=== PATIENT | female | born 1955 | race African-American/Black ===

== ENCOUNTER 2017-05-20 20:38 | Inpatient (IN) | payer OTHER, MEDICAID, MEDICARE ==
[~2017-05-20] VITALS: Ht 149.9 cm; Wt 81.6 kg
[2017-05-20 20:40] VITALS: BP 238/146; PULSE 113; RESP 20; TEMP 97.5; O2SAT 98
[2017-05-20 20:52] VITALS: BP 236/126; PULSE 105; RESP 16; O2SAT 98
[2017-05-20] MEDS ORDERED: SODIUM CHLORIDE 0.9% FLUSH 10 ML FLUSH IVF PRN (21:00)
[2017-05-20] MEDS ORDERED: BP MED (21:01)
--- NOTE | 2017-05-20 21:05 | PD ---
HPI Chief Complaint: Respiratory Symptoms Time Seen by Provider: 20:52 Travel History International Travel<30 days: No Contact w/Intl Traveler<30days: No Traveled to known affect area: No History of Present Illness HPI 62-year-old female arrives complaining of shortness of breath and palpitations. She has felt symptoms for months hour became much worse today and yesterday. Orthopnea and dyspnea on exertion is reported. She has had no cough or fever. She reports minimal chest pain with deep inspiration today. Urination has been normal. She denies the usage of diuretics. No nausea vomiting. Diaphoresis reported from earlier today. PFSH Past Medical History Cardiovascular Problems: Yes (HTN, [place]) Diabetes: Yes (borderline) Patient Takes Glucophage: No Hypertension: Yes Respiratory: Yes Tetanus Vaccination: > 5 Years Influenza Vaccination: No ?: Not Menopausal: Yes Past Surgical History Section: Yes (x4) Cholecystectomy: Yes Social History Alcohol Use: Yes (socially) Tobacco Use: No Substance Use: No Allergies-Medications (Allergen,Severity, Reaction): Coded Allergies: No Known Drug Allergies (Verified Allergy, Unknown, 05/20/17) Reported Meds & Prescriptions Reported Meds & Active Scripts Active Reported [BP Med x3] Review of Systems Except as stated in HPI: all other systems reviewed are Neg General / Constitutional: No: Fever Physical Exam Narrative GENERAL: 62-year-old female pleasant no acute distress Vital Signs Date Time Temp Pulse Resp B/P (MAP) Pulse Ox O2 Delivery O2 Flow Rate FiO2 05/20/17 20:56 22 98 Nasal Cannula 2.00 05/20/17 20:52 105 16 236/126 (162) 98 05/20/17 20:40 97.5 113 20 238/146 (176) 98 Room Air SKIN: Warm and dry. HEAD: Atraumatic. Normocephalic. EYES: Pupils equal and round. No scleral icterus. No injection or drainage. ENT: No nasal bleeding or discharge. Mucous membranes pink and moist. NECK: Trachea midline. No JVD. CARDIOVASCULAR: Rhythm is regular. Tachycardia at about 110. RESPIRATORY: No tachypnea. Breath sounds are clear. GASTROINTESTINAL: Abdomen soft, non-tender, nondistended. Hepatic and splenic margins not palpable. MUSCULOSKELETAL: Extremities without clubbing, cyanosis, or edema. No obvious deformities. NEUROLOGICAL: Awake and alert. No obvious cranial nerve deficits. Motor grossly within normal limits. Five out of 5 muscle strength in the arms and legs. Normal speech. PSYCHIATRIC: Appropriate mood and affect; insight and judgment normal. Data Data Last Documented VS Vital Signs Date Time Temp Pulse Resp B/P (MAP) Pulse Ox O2 Delivery O2 Flow Rate FiO2 05/20/17 23:30 98.3 95 19 165/115 (132) 99 Room Air 05/20/17 20:56 2.00 Orders Orders Complete Blood Count With Diff (05/20/17 20:59) Comprehensive Metabolic Panel (05/20/17 20:59) B-Type Natriuretic Peptide (05/20/17 20:59) Act Partial Throm Time (Ptt) (05/20/17 20:59) Prothrombin Time / Inr (Pt) (05/20/17 20:59) Magnesium (Mg) (05/20/17 20:59) Ckmb (Isoenzyme) Profile (05/20/17 20:59) Troponin I (05/20/17 20:59) Urinalysis - C+S If Indicated (05/20/17 20:59) Iv Access Insert/Monitor (05/20/17 20:59) Electrocardiogram (05/20/17 20:59) Ecg Monitoring (05/20/17 20:59) Oximetry (05/20/17 20:59) Oxygen Administration (05/20/17 20:59) Chest, Single Ap (05/20/17 20:59) Ct Pulmonary Angiogram (05/20/17 20:59) Sodium Chloride 0.9% Flush (Ns Flush) (05/20/17 21:00) CKMB (05/20/17 21:00) CKMB% (05/20/17 21:00) Iodixanol 320 Inj (Rad Ct) (Visipaque 32 (05/20/17 22:09) Furosemide Inj (Lasix Inj) (05/20/17 23:30) Admit Order (Ed Use Only) (05/20/17 ) Ladler / Telemetry LEONEL.Q8H (05/20/17 23:38) Vital Signs (Adult) Q4H (05/20/17 23:38) Diet Heart Healthy (05/21/17 Breakfast) Activity Oob With Assistance (05/20/17 23:38) Labs Laboratory Tests Test 05/20/17 21:00 05/20/17 23:30 White Blood Count 9.6 TH/MM3 Red Blood Count 5.81 MIL/MM3 Hemoglobin 13.7 GM/DL Hematocrit 40.9 % Mean Corpuscular Volume 70.3 FL Mean Corpuscular Hemoglobin 23.6 PG Mean Corpuscular Hemoglobin Concent 33.6 % Red Cell Distribution Width 16.0 % Platelet Count 316 TH/MM3 Mean Platelet Volume 8.7 FL Neutrophils (%) (Auto) 61.5 % Lymphocytes (%) (Auto) 28.2 % Monocytes (%) (Auto) 5.0 % Eosinophils (%) (Auto) 4.2 % Basophils (%) (Auto) 1.1 % Neutrophils # (Auto) 5.9 TH/MM3 Lymphocytes # (Auto) 2.7 TH/MM3 Monocytes # (Auto) 0.5 TH/MM3 Eosinophils # (Auto) 0.4 TH/MM3 Basophils # (Auto) 0.1 TH/MM3 CBC Comment DIFF FINAL Differential Comment Prothrombin Time 10.2 SEC Prothromb Time International Ratio 1.0 RATIO Activated Partial Thromboplast Time 24.9 SEC Blood Urea Nitrogen 21 MG/DL Creatinine 1.57 MG/DL Random Glucose 141 MG/DL Total Protein 8.7 GM/DL Albumin 3.5 GM/DL Calcium Level 8.9 MG/DL Magnesium Level 2.1 MG/DL Alkaline Phosphatase 128 U/L Aspartate Amino Transf (AST/SGOT) 64 U/L Alanine Aminotransferase (ALT/SGPT) 42 U/L Total Bilirubin 0.6 MG/DL Sodium Level 138 MEQ/L Potassium Level 3.9 MEQ/L Chloride Level 103 MEQ/L Carbon Dioxide Level 25.3 MEQ/L Anion Gap 10 MEQ/L Estimat Glomerular Filtration Rate 33 ML/MIN Total Creatine Kinase 131 U/L Creatine Kinase MB LESS THAN 0.5 NG/ML Troponin I LESS THAN 0.02 NG/ML B-Type Natriuretic Peptide 535 PG/ML MDM Medical Decision Making Medical Screen Exam Complete: Yes Emergency Medical Condition: Yes Medical Record Reviewed: Yes Differential Diagnosis Pleural effusion, CHF, A. fib RVR Narrative Course CBC & BMP Diagram 05/20/17 21:00 Total Protein 8.7 H, Albumin 3.5, Calcium Level 8.9, Magnesium Level 2.1, Alkaline Phosphatase 128 H, Aspartate Amino Transf (AST/SGOT) 64 H, Alanine Aminotransferase (ALT/SGPT) 42, Total Bilirubin 0.6 Last Impressions Chest X-Ray 05/20/172058 Signed Impressions: Service Date/Time: Saturday, May 20, 2017 21:09 - CONCLUSION: 1. Cardiomegaly. No acute abnormality. Wilfredo Smith MD CT Angiography 05/20/172058 Signed Impressions: Service Date/Time: Saturday, May 20, 2017 22:06 - CONCLUSION: 1. No pulmonary embolus identified. 2. The lungs appear clear. Wilfredo Smith MD BNP is 580. 40 mg IV Lasix to be given. CHF is new per patient d/w Dr Lakhani for [facility] Diagnosis Primary Impression: Congestive heart failure Qualified Codes: I50.9 - Heart failure, unspecified Admitting Information Admitting Physician Requests: Wilfredo Og MD May 20, 2017 21:05
[2017-05-20 21:19] LABS: AUTOMATED NEUTROPHIL # 5.9 TH/MM3 (1.8-7.7); BASOPHIL # 0.1 TH/MM3 (0-0.2); BASOPHIL % 1.1 % (0.0-2.0); EOSINOPHIL # 0.4 TH/MM3 (0-0.4); EOSINOPHIL % 4.2 % (0.0-4.0); HEMATOCRIT 40.9 % (35.0-46.0); HEMOGLOBIN 13.7 GM/DL (11.6-15.3); LYMPH % 28.2 % (9.0-44.0); LYMPHOCYTE # 2.7 TH/MM3 (1.0-4.8); MEAN CELL VOLUME 70.3 FL (80.0-100.0); MEAN CORPUSCULAR HEMOGLOBIN 23.6 PG (27.0-34.0); MEAN CORPUSCULAR HGB CONC 33.6 % (32.0-36.0); MEAN PLATELET VOLUME 8.7 FL (7.0-11.0); MONOCYTE # 0.5 TH/MM3 (0-0.9); NEUT % 61.5 % (16.0-70.0); PLATELET COUNT 316 TH/MM3 (150-450); RED BLOOD COUNT 5.81 MIL/MM3 (4.00-5.30); WHITE BLOOD COUNT 9.6 TH/MM3 (4.0-11.0)
--- NOTE | 2017-05-20 21:29 | RADRPT ---
EXAM DATE/TIME: 05/20/2017 21:09 [facility] COMPARISON: No previous studies available for comparison. INDICATIONS : Short of breath. MEDICAL HISTORY : None. SURGICAL HISTORY : None. ENCOUNTER: Initial ACUITY: 1 day PAIN SCORE: 0/10 LOCATION: Bilateral chest FINDINGS: The heart is enlarged. The lungs are clear. The visualized bony structures are grossly intact. CONCLUSION: 1. Cardiomegaly. No acute abnormality. Wilfredo Smith MD on May 20, 2017 at 21:26 Board Certified Radiologist. This report was verified electronically.
[2017-05-20 21:34] LABS: ALBUMIN 3.5 GM/DL (3.4-5.0); AST (GOT) 64 U/L (15-37); BICARBONATE 25.3 MEQ/L (21.0-32.0); BLOOD UREA NITROGEN 21 MG/DL (7-18); CALCIUM 8.9 MG/DL (8.5-10.1); CHLORIDE 103 MEQ/L (98-107); CREATININE 1.57 MG/DL (0.50-1.00); GLOMERULAR FILTRATION RATE 33 ML/MIN (>89); GLUCOSE,RANDOM 141 MG/DL (74-106); MAGNESIUM 2.1 MG/DL (1.5-2.5); PROTHROMBIN TIME - PATIENT 10.2 SEC (9.8-11.6); SODIUM (NA) 138 MEQ/L (136-145)
[2017-05-20 21:36] LABS: ALKALINE PHOSPHATASE 128 U/L (45-117); ALT (GPT) 42 U/L (10-53); TOTAL BILIRUBIN ADULT 0.6 MG/DL (0.2-1.0); TOTAL PROTEIN 8.7 GM/DL (6.4-8.2); TROPONIN I LESS THAN 0.02 NG/ML (0.02-0.05)
[2017-05-20] MEDS ORDERED: IODIXANOL 320 MG/ML 10 ML VIAL (for Rad CT) IVCONTRAST ONE (22:09)
--- NOTE | 2017-05-20 22:20 | RADRPT ---
EXAM DATE/TIME: 05/20/2017 22:06 [facility] COMPARISON: No previous studies available for comparison. INDICATIONS : Shortness of breath. IV CONTRAST: 50 cc Visipaque (iodixanol) IV RADIATION DOSE: 20.18 CTDIvol (mGy) MEDICAL HISTORY : Hypertension. SURGICAL HISTORY : None. ENCOUNTER: Initial ACUITY: 2 months PAIN SCALE: 0/10 LOCATION: chest TECHNIQUE: Volumetric scanning of the chest was performed using a pulmonary embolism protocol MIP images were re constructed. Using automated exposure control and adjustment of the mA and/or kV according to patien t size, radiation dose was kept as low as reasonably achievable to obtain optimal diagnostic quality images. DICOM format image data is available electronically for review and comparison. Follow-up recommendations for detected pulmonary nodules are based at a minimum on nodule size and pa tient risk factors according to Fleischner Society Guidelines. FINDINGS: The examination is of good diagnostic quality. No pulmonary embolus is identified. The heart is enlarged. There is no hilar or mediastinal adenopathy. No axillary adenopathy is seen. Imaging through the pulmonary parenchyma demonstrates the lungs to be clear. No suspicious mass lesio n is identified. The visualized osseous structures are intact. The visualized portions of upper abdomen are unremarkable. CONCLUSION: 1. No pulmonary embolus identified. 2. The lungs appear clear. Wilfredo Smith MD on May 20, 2017 at 22:16 Board Certified Radiologist. This report was verified electronically.
[2017-05-20 23:30] VITALS: BP 165/115; PULSE 95; RESP 19; TEMP 98.3; O2SAT 99
[2017-05-20] MEDS ORDERED: FUROSEMIDE 40 MG/4 ML VIAL IV PUSH ONE (23:30)
[2017-05-20 23:41] LABS: BILIRUBIN, URINE NEG (NEG); BLOOD, URINE NEG (NEG); GLUCOSE,URINE NEG (NEG); KETONE, URINE NEG (NEG); MUCUS URINE FEW /lpf (OCC); NITRITE,URINE NEG (NEG); URINE COLOR LIGHT-YELLOW (YELLW/STRAW); URINE LEUKOCYTE ESTERASE SMALL (NEG)
[2017-05-21] VITALS (11 sets, daily range): BP systolic 138–164; BP diastolic 68–109; PULSE 80–110; RESP 16–20; TEMP 97.4–98.3; O2SAT 95–99
[2017-05-21] MEDS ORDERED: LACTULOSE SYRUP 20 GM/30 ML CUP PO PRN (01:15)
[2017-05-21] MEDS ORDERED: MAGNESIUM HYDROXIDE SUSP 30 ML CUP PO PRN (01:15)
[2017-05-21] MEDS ORDERED: NALOXONE HCL 0.4 MG/ML AMP IV PUSH PRN (01:15)
[2017-05-21] MEDS ORDERED: cloNIDine HCL 0.1 MG TAB PO PRN (01:15)
[2017-05-21] MEDS ORDERED: ACETAMINOPHEN 325 MG TAB PO PRN (01:15)
[2017-05-21] MEDS ORDERED: SODIUM CHLORIDE 0.9% FLUSH 10 ML FLUSH IV FLUSH PRN (01:15)
[2017-05-21] MEDS ORDERED: ONDANSETRON HCL 4 MG/2 ML VIAL IVP PRN (01:15)
[2017-05-21] MEDS ORDERED: SENNOSIDES 8.6 MG TAB PO PRN (01:15)
[2017-05-21] MEDS ORDERED: BISACODYL 10 MG SUPP RECTAL PRN (01:15)
--- NOTE | 2017-05-21 02:02 | HHI.HP ---
HPI Service [facility] Primary Care Physician Kelley Stearns M.D. Admission Diagnosis CHF Diagnoses: Travel History International Travel<30 Days: No Contact w/Intl Traveler <30 Da: No Traveled to Known Affected Are: No History of Present Illness 62-year-old female with past medical history significant for hypertension presents to the emergency department for evaluation of shortness of breath. The patient reports increasing respiratory distress, diaphoresis and paroxysmal nocturnal dyspnea with dyspnea on exertion for the past 2 weeks. She states that today her symptoms worsened to the point where she felt as though she could not get enough air. She endorses chest pain and palpitations on the left side of her chest that has been intermittently occurring over the previous 2 weeks. Patient denies any headaches. Denies nausea/vomiting/diarrhea. Vital signs: Temperature 97.5, pulse 113, respiratory rate 20, blood pressure 238/146 , pulse ox 98% on room air Review of Systems Except as stated in HPI: all other systems reviewed are Neg Past Family Social History Past Medical History Hypertension Past Surgical History 4 Cholecystectomy Reported Medications Reported Meds & Active Scripts Active Reported [BP Med x3] Allergies: Coded Allergies: No Known Drug Allergies (Verified Allergy, Unknown, 05/20/17) Family History Father with coronary artery disease Social History Denies tobacco. Occasional alcohol. Denies illicit drugs. Physical Exam Vital Signs Vital Signs Date Time Temp Pulse Resp B/P (MAP) Pulse Ox O2 Delivery O2 Flow Rate FiO2 05/20/17 23:30 98.3 95 19 165/115 (132) 99 Room Air 05/20/17 20:56 22 98 Nasal Cannula 2.00 05/20/17 20:52 105 16 236/126 (162) 98 05/20/17 20:40 97.5 113 20 238/146 (176) 98 Room Air Physical Exam GENERAL: female sitting up in bed SKIN: No rashes, ecchymoses or lesions. Cool and dry. HEAD: Atraumatic. Normocephalic. No temporal or scalp tenderness. EYES: Pupils equal round and reactive. Extraocular motions intact. No scleral icterus. No injection or drainage. ENT: Nose without bleeding, purulent drainage or septal hematoma. Throat without erythema, tonsillar hypertrophy or exudate. Uvula midline. Airway patent. NECK: Trachea midline. No JVD or lymphadenopathy. Supple, nontender, no meningeal signs. CARDIOVASCULAR: Regular rate and rhythm without murmurs, gallops, or rubs. RESPIRATORY: Clear to auscultation. Breath sounds equal bilaterally. No wheezes , rales, or rhonchi. GASTROINTESTINAL: Abdomen soft, non-tender, nondistended. No hepato-splenomegaly , or palpable masses. No guarding. MUSCULOSKELETAL: Extremities without clubbing, cyanosis, or edema. No joint tenderness, effusion, or edema noted. No calf tenderness. NEUROLOGICAL: Awake and alert. Cranial nerves II through XII intact. Motor and sensory grossly within normal limits. Normal speech. Laboratory Laboratory Tests Test 05/20/17 21:00 05/20/17 23:30 White Blood Count 9.6 Red Blood Count 5.81 Hemoglobin 13.7 Hematocrit 40.9 Mean Corpuscular Volume 70.3 Mean Corpuscular Hemoglobin 23.6 Mean Corpuscular Hemoglobin Concent 33.6 Red Cell Distribution Width 16.0 Platelet Count 316 Mean Platelet Volume 8.7 Neutrophils (%) (Auto) 61.5 Lymphocytes (%) (Auto) 28.2 Monocytes (%) (Auto) 5.0 Eosinophils (%) (Auto) 4.2 Basophils (%) (Auto) 1.1 Neutrophils # (Auto) 5.9 Lymphocytes # (Auto) 2.7 Monocytes # (Auto) 0.5 Eosinophils # (Auto) 0.4 Basophils # (Auto) 0.1 CBC Comment DIFF FINAL Differential Comment Prothrombin Time 10.2 Prothromb Time International Ratio 1.0 Activated Partial Thromboplast Time 24.9 Blood Urea Nitrogen 21 Creatinine 1.57 Random Glucose 141 Total Protein 8.7 Albumin 3.5 Calcium Level 8.9 Magnesium Level 2.1 Alkaline Phosphatase 128 Aspartate Amino Transf (AST/SGOT) 64 Alanine Aminotransferase (ALT/SGPT) 42 Total Bilirubin 0.6 Sodium Level 138 Potassium Level 3.9 Chloride Level 103 Carbon Dioxide Level 25.3 Anion Gap 10 Estimat Glomerular Filtration Rate 33 Total Creatine Kinase 131 Creatine Kinase MB LESS THAN 0.5 Troponin I LESS THAN 0.02 B-Type Natriuretic Peptide 535 Urine Color LIGHT-YELLOW Urine Turbidity CLEAR Urine pH 7.0 Urine Specific [place] 1.014 Urine Protein TRACE Urine Glucose (UA) NEG Urine Ketones NEG Urine Occult Blood NEG Urine Nitrite NEG Urine Bilirubin NEG Urine Urobilinogen LESS THAN 2.0 Urine Leukocyte Esterase SMALL Urine RBC 1 Urine WBC 5 Urine Mucus FEW Microscopic Urinalysis Comment CULT NOT INDICATED Result Diagram: 05/20/17209905/20/172099 [facility] VTE Risk Assessment Caprini VTE Risk Assessment: Mod/High Risk (score >= 2) Caprini Risk Assessment Model Point Value = 1 Point Value = 2 Point Value = 3 Point Value = 5 Age 41-60 Minor surgery BMI > 25 kg/m2 Swollen legs Varicose veins or History of unexplained or recurrent spontaneous Oral contraceptives or hormone replacement Sepsis (< 1 month) Serious lung disease, including pneumonia (< 1 month) Abnormal pulmonary function Acute myocardial infarction Congestive heart failure (< 1 month) History of inflammatory bowel disease Medical patient at bed rest Age 61-74 Arthroscopic surgery Major open surgery (> 45 min) Laparoscopic surgery (> 45 min) Malignancy Confined to bed (> 72 hours) Immobilizing plaster cast Central venous access Age >= 75 History of VTE Family history of VTE Factor V Leiden Prothrombin [id number] Lupus anticoagulant Anticardiolipin antibodies Elevated serum homocysteine Heparin-induced thrombocytopenia Other congenital or acquired thrombophilia Stroke (< 1 month) Elective arthroplasty Hip, pelvis, or leg fracture Acute spinal cord injury (< 1 month) Prophylaxis Regimen Total Risk Factor Score Risk Level Prophylaxis Regimen 0-1 Low Early ambulation 2 Moderate Order ONE of the following: *Sequential Compression Device (SCD) *Heparin 5000 units SQ BID 3-4 Higher Order ONE of the following medications: *Heparin 5000 units SQ TID *Enoxaparin/Lovenox 40 mg SQ daily (WT < 150 kg, CrCl > 30 mL/min) *Enoxaparin/Lovenox 30 mg SQ daily (WT < 150 kg, CrCl > 10-29 mL/min) *Enoxaparin/Lovenox 30 mg SQ BID (WT < 150 kg, CrCl > 30 mL/min) AND/OR *Sequential Compression Device (SCD) 5 or more Highest Order ONE of the following medications: *Heparin 5000 units SQ TID (Preferred with Epidurals) *Enoxaparin/Lovenox 40 mg SQ daily (WT < 150 kg, CrCl > 30 mL/min) *Enoxaparin/Lovenox 30 mg SQ daily (WT < 150 kg, CrCl > 10-29 mL/min) *Enoxaparin/Lovenox 30 mg SQ BID (WT < 150 kg, CrCl > 30 mL/min) AND *Sequential Compression Device (SCD) Assessment and Plan Assessment and Plan Assessment/plan: 1. New onset CHF/chest pain/shortness of breath Patient with elevated BMP, PND and SANCHEZ No history of congestive heart failure Echo pending EKG significant for sinus tachycardia without ST segment elevations or depressions, personally reviewed ACS rule out pending; serial troponins/EKGs IV Lasix 2. Hypertension Patient reports she takes 3 blood pressure medications but cannot recall what they are Order placed a call patient's pharmacy to confirm medications Restarted home medications once confirmed Clonidine when necessary 3. JO BUN/Cr 21/1.57 with no baseline for comparison Avoiding IV fluids out of concern for volume overload Monitor renal function FEN Heart healthy diet Electrolytes: monitor and replete prn Heparin Physician Certification 2 Midnight Certification Type: Admission for Inpatient Services Order for Inpatient Services The services are ordered in accordance with Medicare regulations or non- Medicare payer requirements, as applicable. In the case of services not specified as inpatient-only, they are appropriately provided as inpatient services in accordance with the 2-midnight benchmark. Estimated LOS (days): 2 2 days is the estimated time the patient will need to remain in the hospital, assuming treatment plan goals are met and no additional complications. Post-Hospital Plan: Not yet determined Sylvia Lakhani MD May 21, 2017 02:02
[2017-05-21 05:52] LABS: TROPONIN I LESS THAN 0.02 NG/ML (0.02-0.05)
[2017-05-21] MEDS ORDERED: HEPARIN SODIUM - SQ 10,000 UNITS/ML VIAL SQ SCH (06:00)
[2017-05-21] MEDS: SODIUM CHLORIDE 0.9% FLUSH 10 ML FLUSH IV FLUSH SCH ×2 (07:35→20:22)
[2017-05-21] MEDS: DOCUSATE SODIUM 50 MG/SENNA 8.6 MG TAB PO SCH ×2 (07:36→20:22)
[2017-05-21] MEDS: FUROSEMIDE 20 MG/2 ML VIAL IV PUSH SCH ×2 (07:36→17:56)
[2017-05-21] MEDS ORDERED: HEPARIN-D5W 25,000 U/250 ML 250 ML IV PRN (08:30)
[2017-05-21] MEDS ORDERED: hydrALAZINE HCL 20 MG/ML VIAL IV PUSH PRN (08:30)
[2017-05-21] MEDS ORDERED: NITROGLYCERIN 0.4 MG SL 25 TABS/BTL SL PRN (08:30)
--- NOTE | 2017-05-21 08:42 | HHI.PR ---
Subjective Remarks F/U CHF and CP. Reports of exertional left sharp chest pain radiating to left axilla asso with SOB and diaphoresis last episode yesterday. Enzymes negative bit 2nd EKG with T inversion ant leads. No claudication. No hx CAd and CHF. Negative stress test and cath years ago. Hx CKD stage not known dw RN obtain med list and latest BMP from PCP Objective Vitals Vital Signs Date Time Temp Pulse Resp B/P (MAP) Pulse Ox O2 Delivery O2 Flow Rate FiO2 05/21/17 04:00 98.2 88 20 161/104 (123) 98 05/21/17 02:35 150/103 (119) 05/21/17 02:00 110 05/21/17 01:10 97.6 110 20 164/109 (127) 98 05/20/17 23:30 98.3 95 19 165/115 (132) 99 Room Air 05/20/17 20:56 22 98 Nasal Cannula 2.00 05/20/17 20:52 105 16 236/126 (162) 98 05/20/17 20:40 97.5 113 20 238/146 (176) 98 Room Air I/O 05/20/17 05/20/17 05/20/17 05/21/17 05/21/17 05/21/17 07:00 15:00 23:00 07:00 15:00 23:00 Output Total 800 ml Balance -800 ml Output Urine Total 800 ml # Bowel Movements 0 Result Diagram: 05/20/17209905/20/17 2100 Imaging Last Impressions Chest X-Ray 05/20/172058 Signed Impressions: Service Date/Time: Saturday, May 20, 2017 21:09 - CONCLUSION: 1. Cardiomegaly. No acute abnormality. Wilfredo Smith MD CT Angiography 05/20/172058 Signed Impressions: Service Date/Time: Saturday, May 20, 2017 22:06 - CONCLUSION: 1. No pulmonary embolus identified. 2. The lungs appear clear. Wilfredo Smiht MD Objective Remarks GENERAL: female sitting up in bed SKIN: No rashes, ecchymoses or lesions. Cool and dry. CARDIOVASCULAR: Regular rate and rhythm without murmurs, gallops, or rubs. RESPIRATORY: Clear to auscultation. Breath sounds equal bilaterally. No wheezes , rales, or rhonchi. GASTROINTESTINAL: Abdomen soft, non-tender, nondistended. No guarding. MUSCULOSKELETAL: Extremities without clubbing, cyanosis but with trace leg edema. No joint tenderness, effusion, or edema noted. No calf tenderness. NEUROLOGICAL: Awake and alert. Cranial nerves II through XII intact. Motor and sensory grossly within normal limits. Normal speech. A/P Problem List: (1) Congestive heart failure ICD Code: I50.9 - Heart failure, unspecified Status: Acute Assessment and Plan Exertional CP with abnormal EKG and new onset HF in a obese HTNsive pt. Trend enzymes, start Heparin drip, asa, BB and NTP. NPO and consult cards for possible cath pending repeat BMP hx CKD and received contrast yesterday(CTA negative for PE) New onset CHF. Improving on IV lasix, CHF eduaction, I/O and monitor wt. 1.5 L fluid restriction and f/u ECHO HTN. Uncontrolled takes 3 meds pt unable to name. RN to verify from [facility]. Pt on above meds with prn clonidine and Hydralazine JO vs CKD. Received contrast.Unable to hydrate 2/2 CHF. Avoid nephrotoxins. Monitor closely bubba on diuretics consider renal consult Obesity. Needs to lose wt FEN Heart healthy diet but NPO for now Electrolytes: monitor and replete prn Heparin Problem Qualifiers (1) Congestive heart failure: Qualified Codes: I50.9 - Heart failure, unspecified Aurelio Schneider MD May 21, 2017 08:42
[2017-05-21 09:07] LABS: HEMATOCRIT 38.4 % (35.0-46.0); HEMOGLOBIN 12.8 GM/DL (11.6-15.3); MEAN CORPUSCULAR HEMOGLOBIN 23.4 PG (27.0-34.0); MEAN CORPUSCULAR HGB CONC 33.4 % (32.0-36.0); MEAN PLATELET VOLUME 8.7 FL (7.0-11.0); PLATELET COUNT 316 TH/MM3 (150-450); RED BLOOD COUNT 5.48 MIL/MM3 (4.00-5.30); WHITE BLOOD COUNT 9.8 TH/MM3 (4.0-11.0)
[2017-05-21 09:15] LABS: INTERNATIONAL NORMALIZED RATIO 1.1 RATIO; PROTHROMBIN TIME - PATIENT 10.7 SEC (9.8-11.6)
[2017-05-21 09:19] LABS: BICARBONATE 27.6 MEQ/L (21.0-32.0); CALCIUM 8.9 MG/DL (8.5-10.1); CREATININE 1.28 MG/DL (0.50-1.00)
[2017-05-21 09:23] LABS: TROPONIN I LESS THAN 0.02 NG/ML (0.02-0.05)
[2017-05-21] MEDS: ASPIRIN EC 325 MG TABEC PO SCH (10:08)
[2017-05-21] MEDS: METOPROLOL TARTRATE 25 MG TAB PO SCH ×2 (10:08→20:21)
[2017-05-21] MEDS ORDERED: POTASSIUM CHLORIDE 20 MEQ CONTROLLED RELEASE TAB PO ONE (14:00)
[2017-05-21] MEDS ORDERED: POTASSIUM CHLORIDE 10 MEQ CONTROLLED RELEASE TAB PO ONE (14:15)
[2017-05-21] MEDS ORDERED: HEPARIN SODIUM - IV 10,000 UNITS/10 ML VIAL IV PUSH PRN ×2 (14:30)
--- NOTE | 2017-05-21 19:06 | ECHRPT ---
Indication: HEART FAILURE CONCLUSIONS The left ventricular systolic function is severely reduced with an estimated ejection fraction less than 20%. Normal left ventricular size. Wall thickness is normal. The left atrial size is femiajjx-nv-wdvzuiht dilated. The right atrial size is ebqy-oc-gpesasqghb dilated. Smwzhjnz-wd-vndbzl mitral valve regurgitation. Aortic valve sclerosis is present. There is moderate tricuspid regurgitation. The estimated pulmonary arterial pressure is 37.8 mmHg. Trivial pulmonary valve regurgitation. BP: 161 / 104 HR: 88 Rhythm: Sinus MEASUREMENTS (Male / Female) Normal Values Technical Quality:Fair 2D ECHO LV Diastolic Diameter PLAX 5.4 cm 4.2 - 5.9 / 3.9 - 5.3 cm LV Systolic Diameter PLAX 5.0 cm IVS Diastolic Thickness 1.0 cm 0.6 - 1.0 / 0.6 - 0.9 cm LVPW Diastolic Thickness 1.0 cm 0.6 - 1.0 / 0.6 - 0.9 cm LV Relative Wall Thickness 0.4 RV Internal Dim ED PLAX 1.6 cm LVOT Diameter 1.6 cm Aortic Root Diameter 2.6 cm LA Systolic Diameter LX 4.0 cm 3.0 - 4.0 / 2.7 - 3.8 cm M-MODE AV Cusp Separation MM 1.7 cm DOPPLER AV Peak Velocity 125.0 cm/s AV Peak Gradient 6.3 mmHg AV Mean Gradient 4.0 mmHg AV Velocity Time Integral 22.5 cm LVOT Peak Velocity 66.2 cm/s LVOT Peak Gradient 1.8 mmHg LVOT Velocity Time Integral 11.0 cm AV Area Cont Eq vti 1.0 cm AV Area Cont Eq pk 1.1 cm Mitral E Point Velocity 139.0 cm/s Mitral A Point Velocity 110.0 cm/s Mitral E to A Ratio 1.3 LV E' Lateral Velocity 5.5 cm/s Mitral E to LV E' Lateral Ratio 25.5 LV E' Septal Velocity 4.8 cm/s Mitral E to LV E' Septal Ratio 29.1 TR Peak Velocity 263.7 cm/s TR Peak Gradient 27.8 mmHg Right Atrial Pressure 10.0 mmHg Pulmonary Artery Systolic Pressu 37.8 mmHg Right Ventricular Systolic Press 37.8 mmHg PV Peak Velocity 61.7 cm/s PV Peak Gradient 1.5 mmHg FINDINGS LEFT VENTRICLE The left ventricular systolic function is severely reduced with an estimated ejection fraction less than 20%. Normal left ventricular size. Wall thickness is normal. RIGHT VENTRICLE Normal right ventricular size and systolic function. LEFT ATRIUM The left atrial size is uirkisvc-vc-svzbjwfo dilated. RIGHT ATRIUM The right atrial size is tydm-eo-bhlhodgzgn dilated. ATRIAL SEPTUM The interatrial septum not well visualized. AORTA The aortic root and proximal ascending aorta are normal in size on limited imaging. MITRAL VALVE Dycfurya-uj-qkzcii mitral valve regurgitation. AORTIC VALVE Aortic valve sclerosis is present. TRICUSPID VALVE There is moderate tricuspid regurgitation. The estimated pulmonary arterial pressure is 37.8 mmHg. PULMONARY VALVE Trivial pulmonary valve regurgitation. VESSELS The inferior vena cava was not well visualized. PERICARDIUM No pericardial effusion. Rajendra Benitez MD, FACC, FSCAI (Electronically Signed) Final Date:21 May 2017 19:06
--- NOTE | 2017-05-21 19:48 | EKG ---
Date Performed: 05/20/2017 Time Performed: 21:25:46 PTAGE: 62 years EKG: Sinus rhythm WITH OCCASIONAL SUPRAVENTRICULAR PREMATURE COMPLEXES BORDERLINE ECG NO PREVIOUS TRACING DOCTOR: Suzi Palencia Interpretating Date/Time 05/21/2017 19:47:38
--- NOTE | 2017-05-21 19:51 | EKG ---
Date Performed: 05/21/2017 Time Performed: 08:01:22 PTAGE: 62 years EKG: Sinus rhythm POSSIBLE RIGHT ATRIAL ENLARGEMENT POSSIBLE LEFT ATRIAL ENLARGEMENT MODERATE T-WAVE ABNORMALITY, CONS IDER ANTERIOR ISCHEMIA ABNORMAL ECG PREVIOUS TRACING 05/20/17 Since the prior tracing, there has been no significant change DOCTOR: Suzi Palencia Interpretating Date/Time 05/21/2017 19:48:52
[2017-05-22] VITALS (9 sets, daily range): BP systolic 128–154; BP diastolic 66–97; PULSE 59–88; RESP 16–20; TEMP 97–98.2; O2SAT 94–100
[2017-05-22 03:55] LABS: AUTOMATED NEUTROPHIL # 5.2 TH/MM3 (1.8-7.7); BASOPHIL # 0.1 TH/MM3 (0-0.2); BASOPHIL % 1.5 % (0.0-2.0); EOSINOPHIL # 0.5 TH/MM3 (0-0.4); EOSINOPHIL % 5.7 % (0.0-4.0); HEMATOCRIT 37.9 % (35.0-46.0); HEMOGLOBIN 12.7 GM/DL (11.6-15.3); LYMPH % 30.5 % (9.0-44.0); LYMPHOCYTE # 2.8 TH/MM3 (1.0-4.8); MEAN CORPUSCULAR HEMOGLOBIN 23.5 PG (27.0-34.0); MEAN CORPUSCULAR HGB CONC 33.6 % (32.0-36.0); MEAN PLATELET VOLUME 8.6 FL (7.0-11.0); MONO % 6.3 % (0.0-8.0); MONOCYTE # 0.6 TH/MM3 (0-0.9); PLATELET COUNT 299 TH/MM3 (150-450); RED BLOOD COUNT 5.41 MIL/MM3 (4.00-5.30); RED CELL DISTRIBUTION WIDTH 16.4 % (11.6-17.2); WHITE BLOOD COUNT 9.3 TH/MM3 (4.0-11.0)
[2017-05-22 04:44] LABS: BICARBONATE 25.3 MEQ/L (21.0-32.0); CALCIUM 8.9 MG/DL (8.5-10.1); CREATININE 1.49 MG/DL (0.50-1.00)
[2017-05-22] MEDS: DOCUSATE SODIUM 50 MG/SENNA 8.6 MG TAB PO SCH ×2 (07:57→20:57)
[2017-05-22] MEDS: METOPROLOL TARTRATE 25 MG TAB PO SCH (07:57)
[2017-05-22] MEDS: FUROSEMIDE 20 MG/2 ML VIAL IV PUSH SCH ×2 (08:04→17:38)
[2017-05-22] MEDS: SODIUM CHLORIDE 0.9% FLUSH 10 ML FLUSH IV FLUSH SCH ×2 (08:04→20:58)
[2017-05-22] MEDS: ASPIRIN EC 325 MG TABEC PO SCH (08:21)
[2017-05-22] MEDS: POTASSIUM CHLORIDE 20 MEQ CONTROLLED RELEASE TAB PO SCH (08:22)
--- NOTE | 2017-05-22 09:23 | HHI.PR ---
Subjective Remarks Follow-up chest pain and shortness of breath. Improving shortness of breath but had chest pain relieved with sublingual nitroglycerin discussed with RN Objective Vitals Vital Signs Date Time Temp Pulse Resp B/P (MAP) Pulse Ox O2 Delivery O2 Flow Rate FiO2 05/22/17 08:23 97.6 87 20 154/96 (115) 99 05/22/17 04:00 Room Air 05/22/17 04:00 97.3 81 20 152/88 (109) 100 05/22/17 04:00 85 05/22/17 04:00 98.2 80 16 138/68 (91) 99 05/22/17 00:00 79 05/22/17 00:00 Room Air 05/21/17 23:50 98.2 80 16 138/68 (91) 99 05/21/17 20:00 Room Air 05/21/17 20:00 97.4 85 18 139/81 (100) 97 05/21/17 16:07 97.5 87 18 142/96 (111) 97 05/21/17 16:00 80 05/21/17 12:16 97.6 81 18 156/101 (119) 97 05/21/17 10:10 80 I/O 05/21/17 05/21/17 05/21/17 05/22/17 05/22/17 05/22/17 07:00 15:00 23:00 07:00 15:00 23:00 Intake Total 480 ml 240 ml Output Total 800 ml 400 ml Balance -800 ml 480 ml -160 ml Intake Oral 480 ml 240 ml Output Urine Total 800 ml 400 ml # Voids 2 # Bowel Movements 0 0 0 Result Diagram: 05/22/17 0340 05/22/17 0340 Imaging Last Impressions Chest X-Ray 05/20/172058 Signed Impressions: Service Date/Time: Saturday, May 20, 2017 21:09 - CONCLUSION: 1. Cardiomegaly. No acute abnormality. Wilfredo Smith MD CT Angiography 05/20/172058 Signed Impressions: Service Date/Time: Saturday, May 20, 2017 22:06 - CONCLUSION: 1. No pulmonary embolus identified. 2. The lungs appear clear. Wilfredo Smith MD Objective Remarks GENERAL: female sitting up in bed SKIN: No rashes, ecchymoses or lesions. Cool and dry. CARDIOVASCULAR: Regular rate and rhythm without gallops, or rubs. RESPIRATORY: Clear to auscultation. Breath sounds equal bilaterally. No wheezes , rales, or rhonchi. GASTROINTESTINAL: Abdomen soft, non-tender, nondistended. No guarding. MUSCULOSKELETAL: Extremities without clubbing, cyanosis but with trace leg edema. No joint tenderness, effusion, or edema noted. No calf tenderness. NEUROLOGICAL: Awake and alert. Cranial nerves II through XII intact. Motor and sensory grossly within normal limits. Normal speech. A/P Problem List: (1) Congestive heart failure ICD Code: I50.9 - Heart failure, unspecified Status: Acute Assessment and Plan Exertional CP with abnormal EKG and new onset HF in a obese HTNsive pt. She ruled out for CO for cardiac catheterization today keep n.p.o. Continue heparin drip, asa, BB and NTP. New onset systolic CHF. Improving on IV lasix, CHF education, I/O and monitor wt. 1.5 L fluid restriction. Continue beta-benito and consider JOSE inhibitor if kidney function stable. May need AICD in 3 months if no improvement HTN. Uncontrolled takes 3 meds pt unable to name. RN to verify from [facility]. Pt on above meds with prn clonidine and Hydralazine JO vs CKD. Received contrast.Unable to hydrate 2/2 CHF. Avoid nephrotoxins. Monitor closely bubba on diuretics consider renal consult. Patient states she has kidney dysfunction stage not known records from PCP requested Obesity. Needs to lose wt FEN Heart healthy diet but NPO for now Electrolytes: monitor and replete prn Heparin Problem Qualifiers (1) Congestive heart failure: Qualified Codes: I50.9 - Heart failure, unspecified Aurelio Schneider MD May 22, 2017 09:23
[2017-05-22] MEDS ORDERED: HEPARIN-NS/PF FLUSH BAG 1,000 ML IV FLUSH ONE ×2 (09:56→10:00)
[2017-05-22] MEDS ORDERED: HEPARIN SODIUM - IV 10,000 UNITS/10 ML VIAL ONE (10:03)
[2017-05-22] MEDS ORDERED: MIDAZOLAM HCL 2 MG/2 ML VIAL ONE (10:03)
[2017-05-22] MEDS ORDERED: VERAPAMIL HCL 5 MG/2 ML VIAL ONE (10:03)
[2017-05-22] MEDS ORDERED: NITROGLYCERIN INJ 5 ML ONE (10:03)
--- NOTE | 2017-05-22 11:15 | CATHPROC ---
[email or web address] HIS Report Study Information Study Number Admission Scheduled Start Study Start [id number] May 20 2017 11:41PM 05/22/2017 May 22 2017 9:49AM [place] Service Cardiac Catheterization Admit Source Facility Department Emergency department [facility] - Personal Lines Account Manager Physician and Clinical Staff Initial Vern Baker Co Founder And Director Meggan Chauhan RN Other cathlab, cathlab Recorder Donavan Guzman RCIS(BS) Scrub Maile Ayoub ,RT(R) Scrub Romelia Rodriguez,RT(R) Procedures Performed Procedure Location (Site) Vessel Name Coronary Angiograms LCA Left Coronary Coronary Angiograms RCA Right Coronary Coronary Angiograms Radial (right) Radial Art. Wire insertion Brach. Vein (right) Brachial Vein Wire insertion Fem Art (right) Femoral Art Equipment Time Produce Shipper Description Size Mfg Part Number Used/Scraped WIRE, WHISPER W/HYDROCOAT [id number] 10:41 [employer] 190CM Used 190CM *[id number] CATHETER, FR5 SWAN MARYLOU 10:28 mySugr FR 5 [id number] *[id number] Used MONITOR TRANSDUCER, TRUWAVE [id number] 10:28 PHAM RUBY * Used W/STOCKCOCK *[id number] [id number] *[id number] [id number] *[id number] WIRE, HYDROSTEER 150CM [id number] 10:51 [employer] 150CM Used ANGLED GLIDE *[id number] 10:28 [employer] PACK, CCL CUSTOM * Used *[id number] 10:28 [employer] SUPPORT, ARTERIAL ADULT 00964 *[id number] Used BAND, RADIAL COMPRESSION TR [id number] 11:02 [employer] 24CM Used SHORT 24 *[id number] 10:39 [employer] WIRE, 3MMJ .025 * Used *[id number] 10:28 [employer] WIRE, EXCHANGE 260CM 3MMJ 260CM Used *[id number] PROBE COVER, STERILE [id number] 10:28 [employer] * Used ULTRASOUND W/ GEL *[id number] 10:28 [facility] MANIFOLD, 4 PORT * Used *[id number] 10:28 [employer] OMNIPAQUE, 350 MG, 150ML 150ML [id number] Used [id number] 10:28 [facility] BLANKET,WARM AIR CCL * Used *[id number] SHEATH, FR6 TRANSRADIAL RM*[id number] 10:28 [employer] FR 6 Used SLENDER 10CM *[id number] SHEATH, FR6 TRANSRADIAL RM*[id number] 10:28 [employer] FR 6 Used SLENDER 10CM *[id number] SHEATH, FR6 TRANSRADIAL RM*[id number] 10:32 [employer] FR 6 Used SLENDER 10CM *[id number] History: Current Medications Medication Dosage/Unit Route Frequency Last Date/Time Taken Beta Dave ASA History: Allergies Allergy Reaction No Known Drug Allergies History: Risk Factors Family History of Hypertension Dyslipidemia Previous MN Previous Heart Failure Premature CAD Yes Yes Yes No Yes Prior Valve Prior PCI Prior CABG Surgery No No No Cerebrovascular Peripheral Artery Chronic Lung On Dialysis Diabetes Diabetes Therapy Disease Disease Disease No No No No Yes None History: Symptoms/Diagnosis Selection Items Chest pain History: Stress Tests Stress or Imaging Studies Performed No History: Other Disease Selection Items HTN History: MN/CV Data Previous Cath Date 03/30/2011 History: Other Current Smoker No Labs Hgb (g/dl) Hct (%) WBC (l/cumm) Platelets (thousands) 11.60-17.00 35.00-51.00 4.00-11.00 150.00-450.00 12.7 37.9 9.3 299 Glucose (mg/dl) BUN (mg/dl) Creatinine (mg/dl) BUN:Creatinine (1:x) 74.00-106.00 7.00-18.00 0.50-1.30 10.00-20.00 90 26 1.4 18.6 Na (meq/l) K (meq/l) 136.00-145.00 3.50-5.10 138 3.9 INR (PTT:PT) 0.90-1.10 1.1 Troponin I (ng/ml) CPK-MB (ng/ML) 0.02-0.05 0.50-3.60 0.02 Not Drawn Medication Medication Total Dose (Bolus/Oral) Medication Total Dosage/Unit 1% XYLOCAINE 8 mL FENTANYL 50 mcg RADIAL COCKTAIL 5 mL (Bolus) Medications (Bolus/Oral) Medication Time Given Dosage/Unit Administered By Reason 1% XYLOCAINE 05/22/2017 10:26:42 AM 3 mL Vern Peña 3 mL 1% XYLOCAINE given in lab by Vern Peña in Right Radial via Subcutaneous. Ordered by Vern Holbrook. FENTANYL 05/22/2017 10:27:29 AM 50 mcg Meggan Chauhan 50 mcg FENTANYL given in lab by Meggan Chauhan RN in Left Forearm via Peripheral IV. Ordered by Vern Russell. Ntg 200mcg Verapamil 2.5mg Heparin RADIAL COCKTAIL 05/22/2017 10:28:57 AM 5 mL (Bolus) Vern Peña 3000U 5 mL (Bolus) RADIAL COCKTAIL given in lab by Vern Peña in Right Radial via Radial. Using [S olution Name]. Reason: Ntg 200mcg Verapamil 2.5mg Heparin 3200U. 1% XYLOCAINE 05/22/2017 10:31:44 AM 5 mL Vern Peña 5 mL 1% XYLOCAINE given in lab by Vern Peña in Right Antecubital via Subcutaneous. Medication (Drip) Medication Time Given Dosage/Unit Concentration/Unit Diluent (ml) Solution IV Solutions 05/22/2017 9:51:05 AM 0 mL (IV) 500 NaCl .9 Patient arrived on IV Solutions given by catharnulfo galarza in Left Forearm via Peripheral IV. Pump/Dri p Flow = 20 ml/hr using NaCl .9. Ordered by Vern Peña. Initial Case Assessment Cardiovascular HR Rhythm NIBP Chest Pain 92 nsr 153/110 7 Skin color Skin Normal Warm Dry Circulatory - Right Pulses Dorsalis Pedis Femoral Radial 2 2 2 Scale (0,1,2,3,4,d) Circulatory - Left Pulses Dorsalis Pedis Femoral Radial 2 2 Scale (0,1,2,3,4,d) Neurological State Oriented to time-place- Alert Moves all extremities person Respiration - General Respiration Rate SpO2 (%) (B/min) 15 99 Initial Case Assessment Cardiovascular HR Rhythm NIBP Chest Pain 81 nsr 151/102 7 Skin color Skin Normal Warm Dry Circulatory - Right Pulses Dorsalis Pedis Femoral Radial 2 2 2 Scale (0,1,2,3,4,d) Circulatory - Left Pulses Dorsalis Pedis Femoral Radial 2 2 Scale (0,1,2,3,4,d) Neurological State Oriented to time-place- Alert Moves all extremities person Respiration - General Respiration Rate SpO2 (%) (B/min) 15 99 Chronological Log Time Study Chronological Log 9:49:57 Patient arrived via Bed. Heparin drip DCed upon spanish moss picker per MD. 9:50:03 Patient Name, D.O.B, / Armband Verified By R.N. 9:50:04 Consent signed by the physician and the patient and verified by the Personal Lines Account Manager staff. 9:50:04 Pre-op and post- op instructions given; patient acknowledges understanding of instructions. 9:50:05 Verbal Stimulation=2 Physical Stimulation=2 Airway=2 Respiration=2 TOTAL=8. (0=absent, 1=li mited, 2=present) 9:50:45 Presedation assessment performed by Personal Lines Account Manager RN. 9:50:45 Allens test performed on the right radial and ulnar artery- positive. 9:50:46 Immediate Presedation assesment performed by physician. 9:50:47 Patient has been NPO for More than 6Hrs. 9:50:47 Skin Breakdown- none per patient 9:50:48 Patient Warmer Placed on the Table. 9:50:49 Shine Prominences Protected 9:51:04 A # 20 IV was noted in the Forearm (left). Grade = 0 Patient arrived on IV Solutions given by cathlab, cathlab in Left Forearm via Peripheral IV. P ump/Drip Flow = 20 ml/hr 9:51:05 using NaCl .9. Ordered by Vern Peña 9:51:05 History and physical on the chart or being dictated. 9:55:31 Reference ECG taken Vitals capture started with the following parameters, Patient=Adult, Interval=5 min, Initial Pr lxdoyr=220 mmHg, 9:55:34 Deflation Rate=5 mmHg, Cuff placed on Left Arm 9:56:51 HR=97 bpm, ZWPV=477/110 mmhg, SpO2=15 %, Resp=16 B/min, Pain=7, Salvador=10, Tsai=2 Assessment: Initial Case, HR=92 BPM, Rhythm=nsr, RNUF=031/110 mmhg, Chest Pain=7, Color=Normal, Skin = Warm, Dry Right Pulses: Arslan Ped=2, Femoral=2, Radial=2 9:57:35 Left Pulses: Arslan Ped=2, Femoral=2 Neurological: State=Alert, Ox3, BOTELLO Respiration: Resp=15 B/min, SpO2=99 % 10:01:14 HR=98 bpm, KKDL=670/121 mmhg, SpO2=95 %, Resp=16 B/min, Pain=7, Salvador=10, Tsai=2 10:06:17 HR=89 bpm, OEFK=557/103 mmhg, SpO2=95 %, Resp=22 B/min, Pain=7, Salvador=10, Tsai=2 10:09:20 Bilateral groins prepped with 2% chlorhexidine, and draped after a 3 minute waiting time. 10:11:16 HR=95 bpm, FKET=984/114 mmhg, SpO2=95 %, Resp=18 B/min, Pain=7, Salvador=10, Tsai=2 10:14:44 MD paged 10:16:19 HR=92 bpm, RROC=306/120 mmhg, SpO2=95 %, Resp=16 B/min, Pain=7, Salvador=10, Tsai=2 10:19:38 MD arrived. 10:19:42 Contrast Scanned 10:19:43 Immediate Presedation assesment performed by physician. 10:20:24 Pressure channel 1 zeroed. 10:21:18 IO=825 bpm, BEWX=172/119 mmhg, DdL1=743.0 %, Resp=15 B/min, Pain=7, Salvador=10, Tsai=2 10:22:44 Pressure channel 1 zeroed. Time Out. Correct patient, correct procedure, correct physician, power injector not loaded with contrast with surgical 10:26:12 team present. Time Out Concurred by MD and individual staff in procedure. 10:26:21 HR=99 bpm, CAWR=303/97 mmhg, SpO2=97.0 %, Resp=15 B/min, Pain=7, Salvador=10, Tsai=2 10:26:28 Case Start 10:26:35 Verbal Stimulation=2 Physical Stimulation=2 Airway=2 Respiration=2 TOTAL=8. (0=absent, 1=li mited, 2=present) 3 mL 1% XYLOCAINE given in lab by Vern Peña in Right Radial via Subcutaneous. Ordered by Casey 10:26:42 Vern Man 50 mcg FENTANYL given in lab by Meggan Chauhan, SUKHI in Left Forearm via Peripheral IV. Ordered by Vern Peña 10:27:29 G. 10::31 Access site was Right Radial Artery. A SHEATH, FR6 TRANSRADIAL SLENDER 10CM FR 6 was advanced into the Radial (right) using the Perc utaneous ::39 technique. 5 mL (Bolus) RADIAL COCKTAIL given in lab by Vern Peña in Right Radial via Radial. Us ing [Solution Name]. 10:28:57 Reason: Ntg 200mcg Verapamil 2.5mg Heparin 3200U. 10:31:18 HR=95 bpm, XFBU=139/117 mmhg, SpO2=97.0 %, Resp=19 B/min, Pain=7, Salvador=10, Tsai=2 10:31:44 5 mL 1% XYLOCAINE given in lab by Vern Peña in Right Antecubital via Subcutaneous . 10:35:28 Access site was Right Brachial Vein using ultrasound guidance. A SHEATH, FR6 TRANSRADIAL SLENDER 10CM FR 6 was advanced into the Brach. Vein (right) using the Percutaneous :35:35 technique. 10:36:04 A CATHETER, FR5 SWAN MARYLOU MONITOR FR 5 was advanced over a wire. contrast was used for inje ctions. 10:36:17 HR=89 bpm, UOOP=306/92 mmhg, SpO2=91.0 %, Resp=16 B/min, Pain=7, Salvador=10, Tsai=2 10:39:28 A WIRE, 3MMJ .025 * was inserted via Brach. Vein (right). 10:41:04 Wire removed 10:41:13 A WIRE, WHISPER W/HYDROCOAT 190CM 190CM was inserted via Fem Art (right). 10:41:16 HR=85 bpm, XSQQ=779/96 mmhg, SpO2=92.0 %, Resp=18 B/min, Pain=7, Salvador=10, Tsai=2 10:44:28 Wire removed Recorded Pressure: PCW, HR=89, Condition=Condition 1 10:45:12 (Pulmonary Capillary Wedge) PCW 33/33/25 10:46:17 HR=89 bpm, SBOL=831/109 mmhg, SpO2=93.0 %, Resp=13 B/min, Pain=7, Salvador=10, Tsai=2 10:46:59 Saturation: Site=PA (Pulmonary Artery) , O2=56.4 %, Hgb=12.7 gm/dl, Condition=Condition 1. Used in calculation. Recorded Pressure: MPA, HR=90, Condition=Condition 1 10:47:17 (Main Pulmonary Artery) MPA 70/37/51 10:48:12 Saturation: Site=Ao (Aorta) , O2=95.8 %, Hgb=12.7 gm/dl, Condition=Condition 1. Used in joann culation. Recorded Pressure: RV, HR=87, Condition=Condition 1 10:48:31 (Right Ventricle) RV 70/7/10 Recorded Pressure: RA, HR=87, Condition=Condition 1 10:48:58 (Right Atrium) RA 11/8/7 10:49:17 Ocilla Marylou Catheter Removed A JR 4.0 INFINITI CATHETER FR 5 was advanced over a wire. OMNIPAQUE, 350 MG, 150ML 150ML was us ed for 10:49:29 injections. 10:51:00 The Radial (right) was injected and visualized at various angles. OMNIPAQUE, 350 MG, 150ML 150ML used. 10:51:16 HR=86 bpm, JEPA=802/101 mmhg, SpO2=93.0 %, Resp=16 B/min, Pain=7, Salvador=10, Tsai=2 Recorded Pressure: LV, HR=91, Condition=Condition 1 10:53:49 (Left Ventricle) LV 155/13/19 Recorded Pressure: LV, Ao, HR=92, Condition=Condition 1 10:53:59 (Left Ventricle) LV 160/12/18, (Aorta) Ao 158/104/128 Recorded Pressure: Ao, HR=91, Condition=Condition 1 10:54:50 (Aorta) Ao 162/113/135 10:55:35 The RCA was injected and visualized at various angles. OMNIPAQUE, 350 MG, 150ML 150ML used . 10:56:19 HR=81 bpm, FIGF=985/94 mmhg, SpO2=95.0 %, Resp=15 B/min, Pain=7, Salvador=10, Tsai=2 After removing the current catheter a JL 3.5 INFINITI CATHETER FR 5 was advanced over a WIRE, E XCHANGE 260CM 10:56:46 3MMJ 260CM. 10:58:59 The LCA was injected and visualized at various angles. OMNIPAQUE, 350 MG, 150ML 150ML used . 11:00:51 Catheter was removed 11:01:20 HR=82 bpm, FZOU=197/102 mmhg, SpO2=97.0 %, Resp=10 B/min, Pain=7, Salvador=10, Tsai=2 11:01:56 Case End Radial Compression Device Used. 20 mLs of air placed in BAND, RADIAL COMPRESSION TR SHORT 24 24 CM. Affected 11:01:57 hand 95 % O2 saturation. 11:02:35 Activated Clotting Time Drawn Assessment: Initial Case, HR=81 BPM, Rhythm=nsr, EOVZ=784/102 mmhg, Chest Pain=7, Color=Normal, Skin = Warm, Dry Right Pulses: Arslan Ped=2, Femoral=2, Radial=2 11:03:16 Left Pulses: Arslan Ped=2, Femoral=2 Neurological: State=Alert, Ox3, BOTELLO Respiration: Resp=15 B/min, SpO2=99 % 11:03:27 Catheter(s) removed without difficulty 11:03:29 Sterile dressing applied to site 11:03:29 No case complications noted. 11:03:30 Cine recording checked. 11:03:31 Bedside Report will be given. 11:03:35 Verbal Stimulation=2 Physical Stimulation=2 Airway=2 Respiration=2 TOTAL=8. (0=absent, 1=li mited, 2=present) 11:03:48 A Left and Right Heart Cath was performed. 11:06:19 HR=82 bpm, LKNO=706/99 mmhg, SpO2=98.0 %, Resp=15 B/min, Pain=7, Salvador=10, Tsai=2 11:08:30 ACT (Normal Range 90-180) = 244 11:11:20 HR=87 bpm, WDBL=667/105 mmhg, SpO2=97.0 %, Resp=15 B/min, Pain=7, Salvador=10, Tsai=2 11:11:28 Vitals capture stopped. End Study - Contrast Media Used In Study Contrast Total Opened (mL) Total Used (mL) Total Wasted (mL) Omnipaque 35 35 0 End Study - Maximum Contrast Load Max Contrast Load (mL) 287.2 End Study - Radiation Exposure Fluoro Time (minutes) 7.3 End Study - Patient Disposition Complications Transferred To Interventional Outcome No Personal Lines Account Manager Holding No attempt made
[2017-05-22] MEDS ORDERED: MISC INFORMATION XX ONE (11:30)
--- NOTE | 2017-05-22 11:55 | MB ---
cc: VERN GALAN DO DATE OF CONSULTATION 05/21/2017 REASON FOR CONSULTATION Chest pain, shortness of breath. HISTORY OF PRESENT ILLNESS Micaela Houston is a pleasant 62-year-old female who presented to [facility] Emergency Room on May 20, 2017 due to chest pain and shortness of breath with exertion. The patient states that over the past few days she has been noticing more significant respiratory distress, specifically with walking. She has also been somewhat diaphoretic and there is a concern for paroxysmal nocturnal dyspnea. She also states that she has had chest pain throughout these episodes which has been intermittent over the past 2 weeks. She states that she has never had episodes like this before. On arrival she had a blood pressure of 238/146. PAST MEDICAL HISTORY Hypertension. PAST SURGICAL HISTORY 1. x4. 2. Cholecystectomy. ALLERGIES No known drug allergies. MEDICATIONS The patient states that she is on three blood pressure medications of which she does not know. FAMILY HISTORY Father with coronary artery disease. Denies sudden cardiac within the family. SOCIAL HISTORY Denies tobacco or drug abuse. Occasionally uses alcohol. REVIEW OF SYSTEMS 14-systems were reviewed including osteopathic. Pertinent positives and negatives as above, otherwise negative. PHYSICAL EXAMINATION VITAL SIGNS: Temperature 97.6, heart rate 81, blood pressure 156/100, respirations 18, pulse ox 97% on room air. GENERAL: In general the patient appears well, in no acute distress, alert, awake and oriented x3. Extraocular muscles intact. Mucous membranes moist. NECK: Supple. No JVD at 45 degrees. No carotid bruits heard bilaterally. Carotid upstroke is brisk in nature. HEART: Regular rate and rhythm. Positive first and second heart sounds with a 2/6 holosystolic murmur noted at the apex. LUNGS: Decreased breath sounds bilaterally, but no overt wheezes, rales or rhonchi. ABDOMEN: Soft, nontender, nondistended. No organomegaly noted. EXTREMITIES: Trace edema bilaterally. NEUROLOGIC: No focal deficits. SKIN: Warm, dry and intact. MUSCULOSKELETAL: Osteopathically no kyphoscoliosis, lordosis or paraspinal tender points. LABORATORY Hemoglobin 12.8, hematocrit 38.4, platelets 316. Potassium 3.1. BUN 19, creatinine 1.28. Troponin negative x3. BNP 535. ELECTROCARDIOGRAM Electrocardiogram (May 21, 2017 at 0801): Sinus rhythm, possible right atrial and left atrial enlargement, T-wave inversions anteriorly, possibly nonspecific versus ischemia. IMPRESSION 1. Chest pain, shortness of breath with exertion concerning for angina. 2. Probable heart failure. 3. Accelerated hypertension. 4. Acute kidney injury on chronic kidney disease. RECOMMENDATIONS 1. Ms. Houston presented with chest pain and shortness of breath with exertion as well as an abnormal EKG. Because of this will plan on a cardiac catheterization in the morning. 2. Will plan to check a 2-D echo to look at her overall left ventricular function, cardiac structure and possible valvulopathies. 3. If no significant coronary artery disease is found she will need blood pressure control as this could cause both chest pain and shortness of breath with her accelerated hypertension. 4. Further recommendations will be made based on the hospital course. Thank you for allowing me to see Micaela Houston. If there are any questions, please do not hesitate to call. Vern Galan DO VGP/BT /12:37 AM /11:38 AM
[2017-05-22] MEDS ORDERED: NITROGLYCERIN 2% OINT 1 GM PACKET TOP SCH (12:00)
[2017-05-22] MEDS ORDERED: IOHEXOL 350 MG/ML 50 ML BTL (for Cath Lab) OTHER ONE (12:58)
--- NOTE | 2017-05-22 17:37 | PD.CARD.PN ---
Subjective Subjective Remarks Post-cath Doing well, no complaints Objective Medications Current Medications Medications (Trade) Dose Ordered Sig/Albertina Route Start Time Stop Time Status Last Admin (NS Flush) 2 ml UNSCH PRN IV FLUSH 05/21/17 01:15 (NS Flush) 2 ml BID IV FLUSH 05/21/17 09:00 05/22/17 08:04 (Tylenol) 650 mg Q4H PRN PO 05/21/17 01:15 (Zofran Inj) 4 mg Q6H PRN IVP 05/21/17 01:15 (Narcan Inj) 0.4 mg UNSCH PRN IV PUSH 05/21/17 01:15 (Chaya-Colace) 1 tab BID PO 05/21/17 09:00 05/22/17 07:57 (Milk Of Magnesia Liq) 30 ml Q12H PRN PO 05/21/17 01:15 (Senokot) 17.2 mg Q12H PRN PO 05/21/17 01:15 (Dulcolax Supp) 10 mg DAILY PRN RECTAL 05/21/17 01:15 (Lactulose Liq) 30 ml DAILY PRN PO 05/21/17 01:15 (Lasix Inj) 20 mg BID@ IV PUSH 05/21/17 09:00 05/22/17 08:04 (Catapres) 0.1 mg Q6H PRN PO 05/21/17 01:15 05/21/17 04:14 (Apresoline Inj) 10 mg Q6H PRN IV PUSH 05/21/17 08:30 (Nitrostat Sl) 0.4 mg Q5M PRN SL 05/21/17 08:30 (KCl) 20 meq DAILY PO 05/22/17 09:00 05/22/17 08:22 (Aspirin Chew) 81 mg DAILY CHEW 05/23/17 09:00 (Coreg) 12.5 mg Q12HR PO 05/22/17 21:00 Vital Signs / I&O Vital Signs Date Time Temp Pulse Resp B/P (MAP) Pulse Ox O2 Delivery O2 Flow Rate FiO2 05/22/17 16:00 97.3 88 20 128/79 (95) 98 05/22/17 11:32 98 Room Air 05/22/17 08:23 97.6 87 20 154/96 (115) 99 05/22/17 07:15 99 Room Air 05/22/17 04:00 Room Air 05/22/17 04:00 97.3 81 20 152/88 (109) 100 05/22/17 04:00 85 05/22/17 04:00 98.2 80 16 138/68 (91) 99 05/22/17 00:00 79 05/22/17 00:00 Room Air 05/21/17 23:50 98.2 80 16 138/68 (91) 99 05/21/17 20:00 Room Air 05/21/17 20:00 97.4 85 18 139/81 (100) 97 I/O 05/21/17 05/21/17 05/21/17 05/22/17 05/22/17 05/22/17 07:00 15:00 23:00 07:00 15:00 23:00 Intake Total 480 ml 240 ml 430 ml Output Total 800 ml 400 ml Balance -800 ml 480 ml -160 ml 430 ml Intake Oral 480 ml 240 ml IV Total 430 ml Output Urine Total 800 ml 400 ml # Voids 2 # Bowel Movements 0 0 0 Physical Exam GENERAL: NAD, AAOx3 SKIN: Warm and dry. HEAD: Atraumatic. Normocephalic. EYES: Pupils equal and round. No scleral icterus. No injection or drainage. ENT: No nasal bleeding or discharge. Mucous membranes pink and moist. NECK: Trachea midline. No JVD. CARDIOVASCULAR: Regular rate and rhythm. RESPIRATORY: No accessory muscle use. Decreased breath sounds bilaterally GASTROINTESTINAL: Abdomen soft, non-tender, nondistended. Hepatic and splenic margins not palpable. MUSCULOSKELETAL: Extremities without clubbing, cyanosis, or edema. No obvious deformities. NEUROLOGICAL: Awake and alert. No obvious cranial nerve deficits. Motor grossly within normal limits. Five out of 5 muscle strength in the arms and legs. Normal speech. PSYCHIATRIC: Appropriate mood and affect; insight and judgment normal. Laboratory Laboratory Tests Test 05/22/17 03:40 White Blood Count 9.3 TH/MM3 Red Blood Count 5.41 MIL/MM3 Hemoglobin 12.7 GM/DL Hematocrit 37.9 % Mean Corpuscular Volume 70.0 FL Mean Corpuscular Hemoglobin 23.5 PG Mean Corpuscular Hemoglobin Concent 33.6 % Red Cell Distribution Width 16.4 % Platelet Count 299 TH/MM3 Mean Platelet Volume 8.6 FL Neutrophils (%) (Auto) 56.0 % Lymphocytes (%) (Auto) 30.5 % Monocytes (%) (Auto) 6.3 % Eosinophils (%) (Auto) 5.7 % Basophils (%) (Auto) 1.5 % Neutrophils # (Auto) 5.2 TH/MM3 Lymphocytes # (Auto) 2.8 TH/MM3 Monocytes # (Auto) 0.6 TH/MM3 Eosinophils # (Auto) 0.5 TH/MM3 Basophils # (Auto) 0.1 TH/MM3 CBC Comment DIFF FINAL Differential Comment Activated Partial Thromboplast Time 68.1 SEC Blood Urea Nitrogen 26 MG/DL Creatinine 1.49 MG/DL Random Glucose 90 MG/DL Calcium Level 8.9 MG/DL Sodium Level 138 MEQ/L Potassium Level 3.5 MEQ/L Chloride Level 103 MEQ/L Carbon Dioxide Level 25.3 MEQ/L Anion Gap 10 MEQ/L Estimat Glomerular Filtration Rate 43 ML/MIN Assessment and Plan Problem List: (1) NICM (nonischemic cardiomyopathy) ICD Codes: I42.8 - Other cardiomyopathies (2) Cardiomyopathy ICD Codes: I42.9 - Cardiomyopathy, unspecified (3) Accelerated hypertension ICD Codes: I10 - Essential (primary) hypertension (4) Congestive heart failure ICD Codes: I50.9 - Heart failure, unspecified Status: Acute Assessment and Plan 1) New cardiomyopathy, EF 20%, NICM Start on Coreg 6.25mg BID, will plan to stop Lopressor Consider JOSE-I if creatinine stable tomorrow Possibly due to long standing hypertension HERMINIA evaluation outpatient 2) Con't diuresis 3) Cardiac cath showing no significant disease 4) If stable tomorrow, can discharge home Would con't Lasix PO Follow up in the office with me Plan echo in 3 months to evaluate function 5) Dr. Wilburn will be available over the weekend if any concerns Problem Qualifiers (1) Congestive heart failure: Qualified Codes: I50.9 - Heart failure, unspecified Vern Peña DO May 22, 2017 17:36
[2017-05-22] MEDS: CARVEDILOL 12.5 MG TAB PO SCH (20:57)
[2017-05-22] MEDS ORDERED: METOPROLOL TARTRATE 50 MG TAB PO SCH (21:00)
[2017-05-22 21:23] LABS: CHOLESTEROL 248 MG/DL (120-200)
[2017-05-22 21:24] LABS: CHOLESTEROL/ HDL RATIO 3.84 RATIO; HDL CHOLESTEROL 64.5 MG/DL (40.0-60.0); LDL CHOLESTEROL 163 MG/DL (0-99); TRIGLYCERIDES 103 MG/DL (42-150)
[2017-05-23] VITALS: PULSE 81
[2017-05-23 04:00] VITALS: PULSE 71
[2017-05-23 05:18] VITALS: BP 115/68; PULSE 71; RESP 16; TEMP 98; O2SAT 98
[2017-05-23] MEDS ORDERED: FURO20TA PO (07:28)
[2017-05-23] MEDS ORDERED: POTA20TA5 PO (07:28)
[2017-05-23] MEDS ORDERED: CARV12.5 PO (07:28)
--- NOTE | 2017-05-23 07:28 | HHI.DCPOC ---
Discharge Care Plan Diagnosis: (1) Congestive heart failure (2) NICM (nonischemic cardiomyopathy) Your Health Problems Are: Difficulty with ADL Exercise Tolerance Goals to Promote Your Health * To prevent worsening of your condition and complications * To maintain your health at the optimal level Directions to Meet Your Goals Take your medications as prescribed Follow your dietary instruction Follow activity as directed Keep your appointments as scheduled Take your immunizations and boosters as scheduled If your symptoms worsen call your PCP, if no PCP go to Urgent Care Center or Emergency Room Smoking is Dangerous to Your Health. Avoid second hand smoke Call the 24-hour hour crisis hotline for domestic abuse at Aurelio Schneider MD May 23, 2017 07:28
[2017-05-23 08:00] VITALS: BP 145/87; PULSE 60; PULSE 80; PULSE 82; RESP 20; TEMP 97.9; O2SAT 98
--- NOTE | 2017-05-23 08:29 | MA ---
cc: VERN GALAN DO DATE 05/22/2017 PROCEDURE 1. Left heart catheterization. 2. Right heart catheterization. 3. Coronary angiogram. 4. Ultrasound-guided access. PREPROCEDURE DIAGNOSIS 1. Acute systolic heart failure. 2. New cardiomyopathy. 3. Chest pain and shortness of breath with exertion. POSTPROCEDURE DIAGNOSIS 1. Nonischemic cardiomyopathy with an ejection fraction of 20%. 2. Moderate pulmonary hypertension (type 2 due to elevated left-sided filling pressures). 3. Mild coronary artery disease. MEDICATION Fentanyl 50 mcg, heparin 3200 units, verapamil 2.5 mg, nitro 200 mcg. CONTRAST USED 35 cc. FLUOROSCOPY 7.3 minutes. SEDATION Moderate sedation, zero minutes. ESTIMATED BLOOD LOSS 10 cc. PROCEDURAL SUMMARY Micaela Houston is a pleasant 62-year-old female who presented to [facility] due to chest pain and shortness of breath with exertion. She was found to have accelerated hypertension and a cardiomyopathy with an ejection fraction of 20%. Because of this she was recommended right and left heart catheterization. The risks, benefits and alternatives were explained to her and she consented to such. She was brought to the lab and prepped in the usual sterile fashion. The right radial artery was accessed using a modified Seldinger technique and placement of a 5/6 Greek Slender sheath. The right brachial vein was accessed using a modified Seldinger technique and ultrasound guidance and placement of a 5/6 Greek Slender sheath. Both were easily aspirated and flushed. A [place]-Silvana catheter was advanced up the brachial vein to the pulmonary artery. Due to the size of her heart it was difficult to get to a wedge position and so a moderate support Whisper wire was used to further advance the [place]-Silvana catheter to a wedge position. Pressures as well as oxygen saturations were recorded on pullback throughout the heart in a standard fashion. The [place]-Silvana catheter was removed. A JR4 was advanced up the radial artery but met resistance in the midforearm. Angiogram showed mild tortuosity of the radial artery in the midforearm. This was managed with a Glidewire and the JR4 was advanced to the ascending aorta and across the aortic valve for measurement of left ventricular pressure. This was pulled back across the aortic valve showing no significant gradient of aortic stenosis. The JR4 was used for selective angiography of the right coronary artery system. This was exchanged out for a JL 3.5 which was used for selective angiography of the left coronary artery system. The JL 3.5 was removed over a J-wire. A radial band was placed over the arteriotomy site for hemostasis. The brachial vein was sutured in place with plan to remove once ACT was an acceptable value. The patient left the laborer beam house cardiovascularly stable. FINDINGS Left Main: Normal size vessel with adequate reflux and no significant disease. It bifurcates into an LAD and circumflex. LAD: Mild luminal irregularities in the [id number] portion but no significant disease. It gives off two small diagonals with no significant disease. Left Circumflex: Normal size vessel with no significant disease. It gives off two obtuse marginals with the first one being large and the second being somewhat smaller but no significant disease. RCA: Normal size vessel with mild luminal irregularities but no significant disease. HEMODYNAMICS RA 7. RV 70/7. RVEDP 10. PA 70/37, mean PA 51. Wedge 25. LVEDP 18. Cardiac output 3.2. Cardiac index 1.8. IMPRESSION 1. Acute systolic heart failure with elevated left-sided filling pressures. 2. New nonischemic cardiomyopathy with an ejection fraction of 20%. 3. Moderate pulmonary hypertension (type 2 due to elevated left-sided filling pressures). 4. Mild coronary artery disease. RECOMMENDATIONS 1. Ms. Houston appears to have nonischemic cardiomyopathy with elevated left-sided filling pressures. She will be recommended continued diuresis. 2. She will be started on carvedilol and stopping her metoprolol tartrate for her cardiomyopathy as well as attempting to control her blood pressure. 3. Overall she needs further blood pressure control. 4. If creatinine is stable, would consider adding JOSE inhibitor therapy before discharge. 5. She states that she has some daytime somnolence as well as snoring and should be evaluated for obstructive sleep apnea as a possible cause for her cardiomyopathy, although this is most likely due to uncontrolled hypertension. 6. If stable, she can be discharged in the morning for follow-up with me in the office. She will need to have a repeat echocardiogram in 3 months after starting heart failure medications to evaluate need for ICD therapy. Thank you for allowing me to see Micaela Houston. If there are any questions, please do not hesitate to call. Vern HILL/SARAH /12:18 AM /8:13 AM
[2017-05-23] MEDS: SODIUM CHLORIDE 0.9% FLUSH 10 ML FLUSH IV FLUSH SCH (08:53)
[2017-05-23] MEDS: POTASSIUM CHLORIDE 20 MEQ CONTROLLED RELEASE TAB PO SCH (08:53)
[2017-05-23] MEDS: CARVEDILOL 12.5 MG TAB PO SCH (08:53)
[2017-05-23] MEDS: DOCUSATE SODIUM 50 MG/SENNA 8.6 MG TAB PO SCH (08:54)
[2017-05-23] MEDS ORDERED: ASPIRIN 81 MG CHEW TAB CHEW SCH (09:00)
[2017-05-23] MEDS ORDERED: FUROSEMIDE 20 MG TAB PO SCH (09:00)
--- NOTE | 2017-05-23 09:43 | HHI.DS ---
Discharge Summary Admission Date May 20, 2017 at 23:41 Discharge Date: May 23, 2017 Admitting Diagnosis CHF (1) Congestive heart failure ICD Code: I50.9 - Heart failure, unspecified Diagnosis: Principal Status: Acute Procedures Cardiac cath Brief History - From Admission 62-year-old female with past medical history significant for hypertension presents to the emergency department for evaluation of shortness of breath. The patient reports increasing respiratory distress, diaphoresis and paroxysmal nocturnal dyspnea with dyspnea on exertion for the past 2 weeks. She states that today her symptoms worsened to the point where she felt as though she could not get enough air. She endorses chest pain and palpitations on the left side of her chest that has been intermittently occurring over the previous 2 weeks. Patient denies any headaches. Denies nausea/vomiting/diarrhea. Vital signs: Temperature 97.5, pulse 113, respiratory rate 20, blood pressure 238/146 , pulse ox 98% on room air CBC/BMP: 05/22/17 0340 05/22/17 0340 Significant Findings Laboratory Tests Test 05/20/17 21:00 05/20/17 23:30 05/21/17 04:24 05/21/17 08:30 Red Blood Count 5.81 MIL/MM3 (4.00-5.30) 5.48 MIL/MM3 (4.00-5.30) Mean Corpuscular Volume 70.3 FL (80.0-100.0) 70.0 FL (80.0-100.0) Mean Corpuscular Hemoglobin 23.6 PG (27.0-34.0) 23.4 PG (27.0-34.0) Eosinophils (%) (Auto) 4.2 % (0.0-4.0) Blood Urea Nitrogen 21 MG/DL (7-18) 19 MG/DL (7-18) Creatinine 1.57 MG/DL (0.50-1.00) 1.28 MG/DL (0.50-1.00) Random Glucose 141 MG/DL (74-106) Total Protein 8.7 GM/DL (6.4-8.2) Alkaline Phosphatase 128 U/L (45-117) Aspartate Amino Transf (AST/SGOT) 64 U/L (15-37) Estimat Glomerular Filtration Rate 33 ML/MIN (>89) 51 ML/MIN (>89) Creatine Kinase MB LESS THAN 0.5 NG/ML Troponin I LESS THAN 0.02 NG/ML LESS THAN 0.02 NG/ML LESS THAN 0.02 NG/ML B-Type Natriuretic Peptide 535 PG/ML (0-100) Urine Leukocyte Esterase SMALL (NEG) Urine Mucus FEW /lpf (OCC) Potassium Level 3.1 MEQ/L (3.5-5.1) Test 05/21/17 16:25 05/22/17 03:40 05/22/17 19:38 Red Blood Count 5.41 MIL/MM3 (4.00-5.30) Mean Corpuscular Volume 70.0 FL (80.0-100.0) Mean Corpuscular Hemoglobin 23.5 PG (27.0-34.0) Eosinophils (%) (Auto) 5.7 % (0.0-4.0) Eosinophils # (Auto) 0.5 TH/MM3 (0-0.4) Activated Partial Thromboplast Time 68.1 SEC (24.3-30.1) Blood Urea Nitrogen 26 MG/DL (7-18) Creatinine 1.49 MG/DL (0.50-1.00) Estimat Glomerular Filtration Rate 43 ML/MIN (>89) Cholesterol Level 248 MG/DL (120-200) LDL Cholesterol 163 MG/DL (0-99) HDL Cholesterol 64.5 MG/DL (40.0-60.0) Imaging Last Impressions Chest X-Ray [id number]/20/[id number] Signed Impressions: Service Date/Time: Saturday, May 20, 2017 21:09 - CONCLUSION: 1. Cardiomegaly. No acute abnormality. Wilfredo Smith MD CT Angiography [id number]/[id number] Signed Impressions: Service Date/Time: Saturday, May 20, 2017 22:06 - CONCLUSION: 1. No pulmonary embolus identified. 2. The lungs appear clear. Wilfredo Smith MD PE at Discharge GENERAL: female sitting up in bed SKIN: No rashes, ecchymoses or lesions. Cool and dry. CARDIOVASCULAR: Regular rate and rhythm without gallops, or rubs. RESPIRATORY: Clear to auscultation. Breath sounds equal bilaterally. No wheezes , rales, or rhonchi. GASTROINTESTINAL: Abdomen soft, non-tender, nondistended. No guarding. MUSCULOSKELETAL: Extremities without clubbing, cyanosis but with trace leg edema. No joint tenderness, effusion, or edema noted. No calf tenderness. NEUROLOGICAL: Awake and alert. Cranial nerves II through XII intact. Motor and sensory grossly within normal limits. Normal speech. Hospital Course Exertional CP with abnormal EKG and new onset HF in a obese HTNsive pt. She ruled out for FL . Negative cardiac catheterization. Has NICM . New onset systolic CHF. Improving on lasix, CHF education, I/O and monitor wt. 1.5 L fluid restriction. Continue beta-benito and consider JOSE inhibitor if kidney function stable. May need AICD in 3 months if no improvement HTN. Uncontrolled takes 3 meds pt unable to name. RN to verify from [facility](last script in 2015). Pt on above meds with prn clonidine and Hydralazine. Improving JO vs CKD. Received contrast.Unable to hydrate 2/2 CHF. Avoid nephrotoxins. Monitor closely bubba on diuretics consider renal consult. Patient states she has kidney dysfunction stage not known records from PCP requested HLD. Can't recall home statin. Start Lipitor 20 mg HS Obesity. Needs to lose wt Noncompliance, pt counselled Pt Condition on Discharge: Stable Discharge Disposition: Disch w/ Home Health Serv Discharge Time: > 30 minutes Discharge Instructions DIET: Follow Instructions for: Heart Healthy Diet Activities you can perform: Regular-No Restrictions Activities to Avoid: Driving Follow up Referrals: Cardiology - 2 Weeks PCP Follow-up - 2-3 Days New Orders: BASIC METABOLIC PROF - 05/26/17 New Medications: Atorvastatin (Lipitor) 20 Mg Tab 20 MG PO HS for Cholesterol Management, #30 TAB 0 Refills Carvedilol (Coreg) 12.5 Mg Tab 12.5 MG PO Q12HR for Prevent Heart Failure, #60 TAB Furosemide (Furosemide) 20 Mg Tab 20 MG PO DAILY for Prevent Heart Failure, #30 TAB Potassium Chloride Microencaps (Potassium Chloride Microencaps) 20 Meq Tab 20 MEQ PO DAILY for Electrolyte Replacement, #30 TAB Aurelio Schneider MD May 23, 2017 09:43
[2017-05-23] MEDS ORDERED: LIPI20TA PO (11:13)
--- NOTE | 2017-05-23 11:29 | HHI.FF ---
Face to Face Verification Diagnosis: (1) NICM (nonischemic cardiomyopathy) (2) Accelerated hypertension (3) Congestive heart failure Home Health Nursing Order: Medical education Signs/symptoms of disease process CHF education Medication education-adverse effect Nursing assessment with vital signs I have seen patient Micaela Houston on 05/23/17. My clinical findings support the need for the requested home health care services because: Patient has SOB Deconditioned w/ increased weakness I certify that my clinical findings support that this patient is homebound because: Poor cardiac reserve Aurelio Schneider MD May 23, 2017 11:29
[2017-05-23 12:00] VITALS: BP 120/68; PULSE 72; PULSE 75; RESP 20; TEMP 97.4; O2SAT 97
[2017-05-23 14:07] LABS: AUTOMATED NEUTROPHIL # 6.4 TH/MM3 (1.8-7.7); BASOPHIL # 0.1 TH/MM3 (0-0.2); BASOPHIL % 1.2 % (0.0-2.0); EOSINOPHIL # 0.4 TH/MM3 (0-0.4); EOSINOPHIL % 4.4 % (0.0-4.0); HEMATOCRIT 38.1 % (35.0-46.0); HEMOGLOBIN 12.5 GM/DL (11.6-15.3); LYMPH % 19.6 % (9.0-44.0); LYMPHOCYTE # 1.9 TH/MM3 (1.0-4.8); MEAN CELL VOLUME 70.8 FL (80.0-100.0); MEAN CORPUSCULAR HEMOGLOBIN 23.3 PG (27.0-34.0); MEAN CORPUSCULAR HGB CONC 32.9 % (32.0-36.0); MEAN PLATELET VOLUME 8.7 FL (7.0-11.0); MONO % 6.7 % (0.0-8.0); MONOCYTE # 0.6 TH/MM3 (0-0.9); NEUT % 68.1 % (16.0-70.0); PLATELET COUNT 293 TH/MM3 (150-450); RED BLOOD COUNT 5.37 MIL/MM3 (4.00-5.30); RED CELL DISTRIBUTION WIDTH 16.3 % (11.6-17.2); WHITE BLOOD COUNT 9.4 TH/MM3 (4.0-11.0)
[2017-05-23 14:27] LABS: BICARBONATE 25.5 MEQ/L (21.0-32.0); CALCIUM 9.1 MG/DL (8.5-10.1); CREATININE 1.54 MG/DL (0.50-1.00); MAGNESIUM 1.9 MG/DL (1.5-2.5)
[2017-05-23 14:34] LABS: HEMOGLOBIN A1C 5.9 % (4.3-6.0)
[2017-05-23] MEDS ORDERED: ATORVASTATIN 20 MG TAB PO SCH (21:00)
== END 2017-05-23 15:58 | disposition home health service (06) | DRG 286 ==
LOC: NEPC 20:38 → NEDA 23:41 → NEDH 05-21 03:41 → N04A 05-21 12:16
PROVIDERS: ADMIT Family Medicine; ATTEND Internal Medicine
PROC: B2111ZZ Fluoroscopy of Multiple Coronary Arteries using Low Osmolar Contrast (ICD-10-PCS; 2017-05-22)
PROC: 4A023N8 Measurement of Cardiac Sampling and Pressure, Bilateral, Percutaneous Approach (ICD-10-PCS; principal; 2017-05-22 10:00)
DX: I13.0 Hypertensive heart and chronic kidney disease with heart failure and stage 1 through stage 4 chronic kidney disease, or unspecified chronic kidney disease (principal); I50.21 Acute systolic (congestive) heart failure; N17.9 Acute kidney failure, unspecified; I42.8 Other cardiomyopathies; I27.22 Pulmonary hypertension due to left heart disease; E66.9 Obesity, unspecified; N18.9 Chronic kidney disease, unspecified; R07.9 Chest pain, unspecified; Z68.36 Body mass index [BMI] 36.0-36.9, adult; Z71.3 Dietary counseling and surveillance
CPT/HCPCS: 71045; 71275; 80048; 80053; 80061; 81001; 82550; 82552; 82810; 83036; 83735; 83880; 84484; 85002; 85025; 85027; 85610; 85730; 93005; 93306; 93460; 96374; 99152; C1769; C1893; J1644; J1940; J2250; J3010; Q9967